=== PATIENT | male | born 1950 | race Caucasian/White ===

== ENCOUNTER 2019-07-20 15:19 | Observation (INO) | payer MEDICARE, OTHER, SELFPAY ==
[2019-07-20] VITALS (14 sets, daily range): BP systolic 111–187; BP diastolic 65–117; PULSE 66–155; RESP 15–20; TEMP 36.9–37.3; O2SAT 97–99; BMI 32.7
--- NOTE | ~2019-07-20 | XR_ITS ---
EXAMINATION: XR chest 1V portable DATE: 07/20/2019 15:45 INDICATION: Palpitations TECHNIQUE: frontal view of the chest was obtained. COMPARISON: None FINDINGS: The lungs are clear with no focal airspace opacities, pulmonary edema, pleural effusion or pneumothor ax. The cardiomediastinal silhouette is normal. Mild thoracic spondylosis. IMPRESSION: 1. No acute cardiopulmonary disease. Reviewed, dictated and finalized at location A. T CARE PROVIDER
--- NOTE | 2019-07-20 15:31 | ED.ARRPALP ---
HPI - Arrhythmia/Palpitations General Chief Complaint: Arrhythmia/Palpitations Stated Complaint: Irregular heartbeat Time Seen by Provider: 07/20/19 15:29 Source: patient and RN notes reviewed Mode of arrival: ambulatory Limitations: no limitations History of Present Illness HPI narrative: Pt is a 68 y/o male who presents to the ED with c/o heart palpitations which began 20 minutes prior to the arrival to the ED. Pt states he ate lunch and he began to experience heart palpitations shortly afterwards. He reports chest tightness, but denies SOB or chest pain. He denies having any major cardiac complications in the past. He does reports taking one baby ASA every day, but denies any other anticoagulants. Onset (ago): minute(s) (20 minutes prior to arrival) Duration: constant Associated symptoms: other (chest tightness) Related Data Allergies Allergy/AdvReac Type Severity Reaction Status Date / Time acetaminophen Allergy Mild NAUSEA Verified 07/20/19 17:52 clindamycin [From Cleocin] Allergy Mild Unknown Verified 07/20/19 16:38 Penicillins Allergy Mild Unknown Verified 07/20/19 16:38 Sulfa (Sulfonamide Allergy Mild Unknown Verified 07/20/19 16:38 Antibiotics) Review of Systems Review of Systems: All systems reviewed & are unremarkable except as noted in HPI and below Cardiovascular: Cardiovascular: Denies chest pain, Reports palpitations and Reports other (chest tightness) Respiratory: Respiratory: Denies dyspnea PMFSH Past Medical History Medical History (Updated 07/20/19 @ 17:32 by West Chambers DO) Hip fracture requiring operative repair (Acute) Hypertension (Acute) Comments PCP: Dr. Bishop Exam Narrative: Exam Narrative: APPEARANCE: No acute distress, nontoxic, resting in bed EYES: EOMI HEENT: Normocephalic, atraumatic, OMM RESPIRATORY: No respiratory distress Clear to auscultation bilaterally with no rhonchi wheezing or rales. CARDIOVASCULAR: Tachycardic and irregular without murmurs rubs or gallops. ABDOMINAL: Soft, nontender, nondistended, no rebound or guarding MUSCULOSKELETAl: Moves all extremities. No clubbing, cyanosis or edema. NEURO: Awake and alert. Following commands, speech normal, no focal deficits SKIN:: Warm, dry. No rashes lesions or abrasions PSYCHIATRIC: Normal affect/mood, Course Course Emergency Course: Discussed with MEGGAN Amin for Dr. Porras presentation work-up. Agrees with admission at this time Patient continues to have A. fib with rates of 130 to 150 with Cardizem drip increased to 50 mg an hour Called and updated Dr. Sung on continued tachycardia. At this time recommends patient given metoprolol 25 mg p.o. x1 and then continued on metoprolol 25 mg every 8 hours Discussed with patient and family results of workup and diagnosis. Discussed need for admission. Patient and family understand and agree to current treatment plan Consultations Consultation #1: Discussed case with apprentice lineman third step, Dr. Sung. Advised to start the pt on Lovenox medication. Date: 07/20/19 Time: 16:16 Vital Signs Vital signs: Vital Signs Temperature 99.0 F 07/20/19 15:50 Pulse Rate 155 H 07/20/19 15:50 Respiratory Rate 17 07/20/19 15:50 Blood Pressure 187/111 H 07/20/19 15:50 Pulse Oximetry 97 07/20/19 15:50 Temperature 99.1 F 07/20/19 17:02 Pulse Rate 126 H 07/20/19 17:32 Respiratory Rate 20 07/20/19 17:32 Blood Pressure 128/83 07/20/19 17:32 Pulse Oximetry 99 07/20/19 17:32 MDM - Arrhythmia/Palpitations Lab Data Result diagrams: 07/20/19 15:54 07/20/19 15:54 Labs: Lab Results 07/20/19 07/20/19 07/20/19 Range/Units 15:54 15:54 15:54 WBC 6.5 (4.5-10.0) K/mm3 RBC 5.55 (4.6-6.20) M/mm3 Hgb 15.8 (14.0-18.0) g/dL Hct 48.5 (42.0-52.0) % MCV 87.4 (80-100) fl MCH 28.5 (26-34) pg MCHC 32.6 (32-36) g/dl RDW 13.0 (11.5-14.5) % Plt Count 185 (150-375) k/mm3 MPV 8.9 (7.4-10.4) fl Imm
--- NOTE | 2019-07-20 15:32 | ECG_ITS ---
Measurements Intervals [place] Rate: 147 P: OR: 0 QRS: 63 QRSD: 100 T: 27 QT: 276 QTc: 432 Interpretive Statements ATRIAL FIBRILLATION WITH RAPID VENTRICULAR RESPONSE BORDERLINE ST-T WAVE ABNORMALITY- INFERIOR LEADS BASELINE ARTIFACT- I, II, AVR, AVL ABNORMAL ECG Electronically Signed On 07-21-2019 8:12:38 BASKET MACHINE OPERATOR by New Bautista D.O.
[2019-07-20 16:04] LABS: Basophils Absolute Auto 0.1 K/mm3 (0.0-0.1); Basophils Percent Auto 0.8 % (0.2-1.2); Eosinophils Absolute Auto 0.2 K/mm3 (0-0.3); Eosinophils Percent Auto 3.1 % (0-4.4); Hematocrit 48.5 % (42.0-52.0); Hemoglobin 15.8 g/dL (14.0-18.0); Immature Granulocyte Absolute 0.04 K/mm3 (0.00-0.031); Immature Granulocyte Percent A 0.6 % (0-0.5); Lymphocytes Absolute Auto 1.57 K/mm3 (0.9-3.2); Lymphocytes Percent Auto 24.2 % (18.3-44.2); Mean Corpuscular HGB Conc 32.6 g/dl (32-36); Mean Corpuscular Hemoglobin 28.5 pg (26-34); Mean Corpuscular Volume 87.4 fl (80-100); Mean Platelet Volume 8.9 fl (7.4-10.4); Monocytes Absolute Auto 0.4 K/mm3 (0.1-0.6); Monocytes Percent Auto 5.5 % (2.6-8.5); Neutrophils Absolute Auto 4.3 K/mm3 (1.3-6.7); Neutrophils Percent Auto 65.8 % (45.5-73.1); Platelet Count Result 185 k/mm3 (150-375); Red Blood Count 5.55 M/mm3 (4.6-6.20); White Blood Count 6.5 K/mm3 (4.5-10.0)
[2019-07-20 16:10] LABS: INR 0.9; Prothrombin Time 12.3 Seconds (11.1-14.7)
[2019-07-20 16:11] LABS: Partial Thromboplastin Time 26.6 SECONDS (22.3-36.8)
[2019-07-20 16:13] LABS: Alanine Aminotransferase 19 U/L (4-50); Albumin Level 4.5 g/dL (3.5-5.1); Alkaline Phosphatase 49 U/L (38-126); Aspartate Amino Transferase 26 U/L (17-59); Bilirubin,Total 0.4 mg/dL (0.2-1.3); Blood Urea Nitrogen 23 mg/dL (9-20); Calcium 9.3 mg/dL (8.4-10.2); Carbon Dioxide 28 mmol/L (22-30); Chloride 99 mmol/L (98-107); Estimated CRCL calculation 67 ml/min; Estimated Glomerular Filt Rate 60; Glucose 177 mg/dL (75-110); Potassium 4.3 mmol/L (3.4-5.0); Sodium 136 mmol/L (137-145)
[2019-07-20 16:24] LABS: Troponin I 0.014 ng/mL (0.000-0.034)
[2019-07-20] MEDS: SODIUM CHLORIDE 0.9% IV 1,000 ML 999 ML IV CONT (16:33)
[2019-07-20] MEDS: ENOXAPARIN 120 MG/0.8 ML SYRINGE 105 MG SUB-Q (17:40)
[2019-07-20] MEDS: METOPROLOL TARTRATE 25 MG TABLET PO (18:32)
--- NOTE | 2019-07-20 19:01 | ADMGEN ---
This patient, Colten Amaya, was admitted to IMU Room 207-01. Patient/family oriented to hospital policies and general routines including ID bracelet, bed and alarms, visiting hours, pain management, procedures, bathroom and other care routines, personal items, smoking policy, room service/diet, and visiting hours. Valuables list has been completed. Information on how to activate the Rapid Response Team has been discussed. Patient/Family are encouraged to report perceived risks to care and to ask questions if they do not understand what they are told or what they should do.
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
[2019-07-20 22:30] LABS: Troponin I 0.142 ng/mL (0.000-0.034)
[2019-07-21] VITALS (10 sets, daily range): BP systolic 138–155; BP diastolic 64–70; PULSE 57–75; RESP 18–20; TEMP 36.6; O2SAT 98–99
--- NOTE | 2019-07-21 02:37 | ECG_ITS ---
Measurements Intervals [place] Rate: 64 P: 40 HI: 197 QRS: 49 QRSD: 114 T: 63 QT: 417 QTc: 431 Interpretive Statements SINUS RHYTHM ATRIAL PREMATURE COMPLEX INTRAVENTRICULAR CONDUCTION DELAY BASELINE ARTIFACT- II, III BORDERLINE ECG Electronically Signed On 07-21-2019 14:51:51 MANAGER STATISTICS by New Bautista D.O.
[2019-07-21 04:51] LABS: Basophils Absolute Auto 0.1 K/mm3 (0.0-0.1); Basophils Percent Auto 0.8 % (0.2-1.2); Eosinophils Absolute Auto 0.1 K/mm3 (0-0.3); Hematocrit 45.7 % (42.0-52.0); Hemoglobin 14.9 g/dL (14.0-18.0); Immature Granulocyte Absolute 0.02 K/mm3 (0.00-0.031); Immature Granulocyte Percent A 0.3 % (0-0.5); Lymphocytes Absolute Auto 1.92 K/mm3 (0.9-3.2); Lymphocytes Percent Auto 27.2 % (18.3-44.2); Mean Corpuscular HGB Conc 32.6 g/dl (32-36); Mean Corpuscular Hemoglobin 28.4 pg (26-34); Mean Corpuscular Volume 87.2 fl (80-100); Mean Platelet Volume 8.7 fl (7.4-10.4); Monocytes Absolute Auto 0.5 K/mm3 (0.1-0.6); Monocytes Percent Auto 7.1 % (2.6-8.5); Neutrophils Absolute Auto 4.4 K/mm3 (1.3-6.7); Neutrophils Percent Auto 62.6 % (45.5-73.1); Platelet Count Result 196 k/mm3 (150-375); Red Blood Count 5.24 M/mm3 (4.6-6.20); White Blood Count 7.1 K/mm3 (4.5-10.0)
[2019-07-21 05:02] LABS: Cholesterol 210 mg/dL (0-200); HDL Direct 45 mg/dL; Triglycerides 169 mg/dL (<150)
[2019-07-21 05:03] LABS: Blood Urea Nitrogen 20 mg/dL (9-20); Calcium 8.8 mg/dL (8.4-10.2); Carbon Dioxide 30 mmol/L (22-30); Chloride 99 mmol/L (98-107); Estimated CRCL calculation 74 ml/min; Estimated Glomerular Filt Rate > 60; Glucose 115 mg/dL (75-110); Potassium 4.2 mmol/L (3.4-5.0); Sodium 134 mmol/L (137-145)
[2019-07-21 05:08] LABS: Magnesium 2.3 mg/dL (1.6-2.3); Phosphorus 3.8 mg/dL (2.5-4.5)
[2019-07-21 05:14] LABS: LDL Cholesterol Direct 134 mg/dL
[2019-07-21] MEDS: ENOXAPARIN 120 MG/0.8 ML SYRINGE 105 MG SUB-Q (05:42)
[2019-07-21] MEDS: METOPROLOL TARTRATE 25 MG TABLET PO (05:43)
[2019-07-21 06:26] LABS: Hemoglobin A1C 5.9 % (<5.7)
--- NOTE | 2019-07-21 08:32 | ECG_ITS ---
Measurements Intervals [place] Rate: 60 P: 85 NH: 212 QRS: 54 QRSD: 109 T: 67 QT: 418 QTc: 418 Interpretive Statements SINUS RHYTHM WITH FIRST DEGREE AV BLOCK ABNORMAL ECG Electronically Signed On 07-21-2019 10:25:02 COMMISSIONING MANAGER by New Bautista D.O.
[2019-07-21] MEDS: ENALAPRIL MALEATE 10 MG TABLET PO (09:04)
[2019-07-21] MEDS: LOPERAMIDE HCL 2 MG CAPSULE PO (10:10)
[2019-07-21 10:45] LABS: Troponin I 0.094 ng/mL (0.000-0.034)
--- NOTE | 2019-07-21 11:39 | PM.CNCAR ---
Assessment and Plan Assessment and plan (1) Atrial fibrillation with rapid ventricular response: Code(s): I48.91 - Unspecified atrial fibrillation Status: Acute Assessment and Plan: New diagnosis, symptomatic at presentation with rapid ventricular response 170 beats per minute. diltiazem did not control heart rate effectively until metoprolol was added. Patient converted to sinus rhythm overnight and is asymptomatic with a heart rate in the 60s to 70s. He feels well on current regimen. 2D echocardiogram personally reviewed normal LV function although difficult study, no significant valve pathology. (2) Hypertension: Code(s): I10 - Essential (primary) hypertension Status: Chronic Assessment and Plan: Blood pressure variable, not ideal but fair control overall. Continue home antihypertensive regimen. (3) Elevated troponin: Code(s): R79.89 - Other specified abnormal findings of blood chemistry Status: Acute Assessment and Plan: Type 2 infarct not secondary to acute coronary syndrome and/or plaque rupture. Troponin elevation in setting of atrial fibrillation with rapid ventricular response resulting in demand ischemia. Patient has no symptoms suggestive myocardial ischemia. However, given his risk factors cannot exclude underlying CAD. Troponin trend is not consistent with primary plaque rupture and as such outpatient ischemic evaluation was discussed and will be pursued. All questions answered to the patient and his 's satisfaction. Explained the pathophysiology, treatment options, embolic stroke risk associated with atrial fibrillation and the goal for rhythm control and oral rate control. CHADS2 Vasc score 3. Systemic anticoagulation advised. Will initiate Xarelto 20 mg at bedtime. We discussed increased bleeding risk with concomitant aspirin and anticoagulation and for stroke risk reduction. We also discussed continuation of ASA given elevated Trop I but pt denies CP at any time. IF any concern may continue ASA until ischemic evaluation complete. We will set outpatient follow-up and plans for treadmill nuclear stress test. Continue metoprolol 25 mg p.o. twice daily. Continue home cardiovascular medical therapy with the exception of aspirin as above. Diltiazem will be discontinued. counseled on monitoring for recurrence of atrial fibrillation and went to notify the office. He will monitor for bleeding with black tarry stools, bright red blood and/or other bleeding concerns. Caution with ambulation to avoid falls and injuries. Embolic stroke risk statistically appears to outweigh risk for bleeding and as such systemic anticoagulation advised. Patient is in agreement with this plan of care. Patient stable for discharge home from cardiac perspective follow up as an outpatient. Will defer to hospitalist service in this regard. (4) Diet-controlled diabetes mellitus: Code(s): E11.9 - Type 2 diabetes mellitus without complications Status: Acute Assessment and Plan: Per primary service. Continue lifestyle modification. History of Present Illness History of Present Illness Consult date/time: DATE OF SERVICE: 07/21/19 11:15 This is a cardiology consultation at the request of Dr. Porras of the [facility] Hospitalist service for my opinion regarding management of atrial fibrillation with rapid ventricular response. Requesting physician: Anahi Porras MD Consult reason: atrial fibrillation Reason For Visit: Palpitations. Narrative: Patient is a very pleasant 68-year-old gentleman with a history of diet-controlled diabetes mellitus, hypertension, obesity, history of tobacco abuse, and dyslipidemia who presents to the emergency department with complaints of rapid palpitations in general not feeling well. His symptoms became 0 severe approximately 20 minutes prior to arrival, however, he notes that he had been having intermittent symptoms off and on fo
[2019-07-21 12:04] LABS: Glucose Point of Care 110 (65-105)
--- NOTE | 2019-07-21 13:54 | PM.DS ---
DS: Diagnosis Admitting Diagnosis Admitting Diagnosis: Unspecified atrial fibrillation Discharge Diagnosis (1) Atrial fibrillation with rapid ventricular response: Code(s): I48.91 - Unspecified atrial fibrillation Status: Acute Assessment and Plan: Patient with AFib/RVR on admission to the ER with palpitations starting 20 minutes prior to presentation. TSH 2.8. Started on a Cardizem drip and converted to normal sinus rhythm. Echo showing EF 55% with grade II DD. Limited Echo images. Patient was converted to p.o. metoprolol. He was started on therapeutic dose of Lovenox and changed to Xarelto at discharge. Cardiology was involved his care. Cardiology felt patient could be discharged today. Patient will need to follow up with Cardiology to schedule an outpatient stress test. Patient is eager for discharge. (2) Elevated troponin: Code(s): R79.89 - Other specified abnormal findings of blood chemistry Status: Acute Assessment and Plan: Troponin to 0.14. Likely related to rapid ventricular response but cannot exclude underlying ischemic disease. Plan for outpatient stress test per Cardiology recommendation. Continue aspirin and metoprolol. (3) Hypertension: Code(s): I10 - Essential (primary) hypertension Status: Chronic Assessment and Plan: Blood pressure was as high as 187/111 in the emergency department but has improved with the addition of Cardizem and metoprolol. Blood pressure improved throughout the day today and currently is 140/69. (4) Diet-controlled diabetes mellitus: Code(s): E11.9 - Type 2 diabetes mellitus without complications Status: Acute Assessment and Plan: Diet controlled DM. A1c 5.9. Glucose remained well controlled. DS: Summary Hospital Course Reason for hospitalization: 68yo male here for AFib/RVR. Please see H&P for details. Hospital Course: See above Status at Discharge Functional status at discharge: independent ambulation Overall status at discharge: patient is back to baseline Time Spent with Patient Time attestation: Total time spent providing and/or coordinating discharge services: Specific discharge activities: 32 minutes spent on discharge. Exam Narrative: Exam Narrative: Gen - NARD Chest - CTA bilaterally, nml RR CV - RRR S1/S2; telemetry showing normal sinus rhythm now Abd - Soft, NT/ND, Positive BS Ext - No pedal edema Psych - Nml mood and affect Skin - Warm and dry DS: Data Data Completed and Pending Labs on day of discharge: Labs from last 24 hours 07/21/19 07/21/19 07/21/19 11:39 10:03 04:21 WBC RBC Hgb Hct MCV MCH MCHC RDW Plt Count MPV Immature Gran % (Auto) Neut % (Auto) Lymph % (Auto) Gila % (Auto) Eos % (Auto) Baso % (Auto) Lymph # (Auto) Gila # (Auto) Eos # (Auto) Baso # (Auto) Abs Immat Gran (auto) Absolute Neuts (auto) Absolute Nucleated RBC Nucleated RBC % PT INR APTT Sodium Potassium Chloride Carbon Dioxide BUN Creatinine Estim Creat Clear Calc Estimated GFR Glucose POC Capillary Glucose 110 Hemoglobin A1c 5.9 H Calcium Phosphorus Magnesium Total Bilirubin AST ALT Alkaline Phosphatase Troponin I 0.094 H* Total Protein Albumin Triglycerides Cholesterol LDL Cholesterol Direct HDL Direct TSH (Reflex) 07/21/19 07/21/19 07/21/19 04:21 04:21 04:21 WBC RBC Hgb Hct MCV MCH MCHC RDW Plt Count MPV Immature Gran % (Auto) Neut % (Auto) Lymph % (Auto) Gila % (Auto) Eos % (Auto) Baso % (Auto) Lymph # (Auto) Gila # (Auto) Eos # (Auto) Baso # (Auto) Abs Immat Gran (auto) Absolute Neuts (auto) Absolute Nucleated RBC Nucleated RBC % PT INR APTT Sodium Potassium Chloride Carbo
--- NOTE | 2019-07-21 23:51 | ECHO_ITS ---
Patient Info Name: Colten Amaya Age: 68 years : 1950 Gender: Male Ht: 72 in Wt: 241 lbs BSA: 2.39 m2 HR: 60 bpm BP: 138 / 64 mmHg Heart Rhythm: Sinus Rhythm Technical Quality: Good Exam Date: 07/21/2019 9:48 AM Exam Location: [facility] Pulmonary Patient Status: Inpatient Staff Ordering Physician: Eloisa Yanes PA-C Measurement Department Chief Clerk: Heriberto Edwards RDCS Attending Provider: Anahi Porras MD Referring Physician: Joaquín CORNEJO; Exam Type: CA echo doppler color flow Study Info Indications I48.0 - Paroxysmal atrial fibrillation Complete two-dimensional, color flow and Doppler transthoracic echocardiogram is performed. History/Risk Factors Atrial fibrillation; HTN, DM2, trop leak 2/2 afib. Summary 1. Technically difficult study with limited views. Left ventricular systolic function is normal, estimated at 55%. Regional wall motion assessment limited due to poor endomyocardial border definition in several views. 2. There is mildly increased left ventricular wall thickness. 3. The left ventricular diastolic function is grade II diastolic dysfunction. 4. Right atrial chamber dimension is mildly enlarged. 5. There is trace tricuspid valve regurgitation. 6. Unable to estimate PA systolic pressure due to poor spectral resolution of tricuspid regurgitant jet velocity. 7. There is mild mitral valve regurgitation. 8. Mild calcification of the aortic root. Left Ventricle Left ventricular chamber dimension is normal. Technically difficult study with limited views. Left ventricular systolic function is normal, estimated at 55%. Regional wall motion assessment limited due to poor endomyocardial border definition in several views. There is mildly increased left ventricular wall thickness. The left ventricular diastolic function is grade II diastolic dysfunction. E/e' 12.0 is elevated. Global longitudinal strain is mildly elevated at -13 %. Right Ventricle Right ventricular chamber dimension is normal. Right ventricular systolic function is normal. Left Atria Left atrial chamber dimension is normal. Right Atria Right atrial chamber dimension is mildly enlarged. Aortic Valve The aortic valve is not well visualized. There is no aortic valve stenosis. There is mild aortic valve regurgitation. Pulmonic Valve The pulmonic valve is not well visualized. Mitral Valve The mitral valve has normal leaflets and calcified annulus. There is mild mitral valve regurgitation. Tricuspid Valve The tricuspid valve leaflets are normal. There is trace tricuspid valve regurgitation. Unable to estimate PA systolic pressure due to poor spectral resolution of tricuspid regurgitant jet velocity. Pericardium/Pleural The pericardium appears not well visualized. Aorta The aortic root size at the sinus of Valsalva is normal. Mild calcification of the aortic root. Left Ventricular Outflow Tract Name Value Normal LVOT 2D LVOT Diameter 2.2 cm LVOT Doppler LVOT Peak Gradient 4 mmHg LVOT Mean Gradient 2 mmHg LVOT VTI 21
== END 2019-07-21 14:30 | disposition home or self-care (01) ==
LOC: ANHED 17:32 → ANHIMU 23:51
PROVIDERS: Internal Medicine Cardiovascular Disease; Physician Assistant; Admitting Provider Family Medicine; Emergency Provider Emergency Medicine; PCP Internal Medicine; Visit Provider Internal Medicine
DX: I48.20 Chronic atrial fibrillation, unspecified (principal); R79.89 Other specified abnormal findings of blood chemistry; I10 Essential (primary) hypertension; E78.5 Hyperlipidemia, unspecified; E11.9 Type 2 diabetes mellitus without complications; Z79.82 Long term (current) use of aspirin
CPT/HCPCS: 36415; 71045; 80048; 80053; 80061; 83036; 83735; 84100; 84443; 84484; 85025; 85610; 85730; 93005; 93306; 96361; 96365; 96366; 96372; 96376; 99285; A9270; G0378; J1650; J7030

== ENCOUNTER 2025-02-15 07:00 | Emergency (ER) | payer MEDICARE, SELFPAY ==
[2025-02-15] VITALS (9 sets, daily range): BP systolic 146–172; BP diastolic 73–98; PULSE 81–103; RESP 12–20; TEMP 36.6; O2SAT 98–100
--- NOTE | ~2025-02-15 | XR_ITS ---
Clinical Indication: Palpitations PA and lateral views of the chest: Comparison: 07/20/2019 Findings: The lungs are clear, without evidence of focal consolidation or pleural effusion. Cardiome diastinal silhouette is within normal limits. Bones and soft tissues are unremarkable. Impression: Normal chest. Reviewed, dictated and finalized at location . Impression: Normal chest.
--- NOTE | 2025-02-15 07:12 | ECG_ITS ---
Test Date: 2025-02-15 07:15:03 Measurements Intervals [place] Rate: 101 P: 0 TN: 0 QRS: 51 QRSD: 110 T: 32 QT: 327 QTc: 424 Interpretive Statements ATRIAL FIBRILLATION WITH RAPID VENTRICULAR RESPONSE BASELINE ARTIFACT- I, II, III ,AVR, AVL, AVF ABNORMAL ECG No previous ECG available for comparison Electronically Signed On 02-15-2025 07:47:38 CDT by New Bautista D.O.
[2025-02-15 07:39] LABS: Basophils Percent Auto 0.4 % (0.2-1.2); Eosinophils Absolute Auto 0.1 K/mm3 (0-0.3); Eosinophils Percent Auto 1.3 % (0-4.4); Hematocrit 48.7 % (42.0-52.0); Hemoglobin 15.6 g/dL (14.0-18.0); Immature Granulocyte Absolute 0.04 K/mm3 (0.00-0.031); Immature Granulocyte Percent A 0.4 % (0-0.5); Lymphocytes Absolute Auto 1.48 K/mm3 (0.9-3.2); Lymphocytes Percent Auto 14.7 % (18.3-44.2); Mean Corpuscular Hemoglobin 29.3 pg (26-34); Mean Corpuscular Volume 91.4 fl (80-100); Mean Platelet Volume 9.6 fl (7.4-10.4); Monocytes Absolute Auto 0.7 K/mm3 (0.1-0.6); Monocytes Percent Auto 7.3 % (2.6-8.5); Neutrophils Absolute Auto 7.7 K/mm3 (1.3-6.7); Neutrophils Percent Auto 75.9 % (45.5-73.1); Platelet Count Result 187 k/mm3 (150-375); Red Blood Count 5.33 M/mm3 (4.6-6.20); Red Cell Distribution Width 13.9 % (11.5-14.5); White Blood Count 10.1 K/mm3 (4.5-10.0)
[2025-02-15] MEDS: SODIUM CHLORIDE 0.9% IV 1,000 ML 999 ML (07:45)
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
[2025-02-15 07:51] LABS: Alanine Aminotransferase 27 U/L (6-50); Alkaline Phosphatase 55 U/L (38-126); Anion Gap 10 mmol/L (4-12); Aspartate Amino Transferase 23 U/L (17-59); Bilirubin,Total 0.7 mg/dL (0.2-1.3); Blood Urea Nitrogen 26 mg/dL (9-20); Calcium 8.8 mg/dL (8.4-10.2); Carbon Dioxide 21 mmol/L (22-30); Chloride 107 mmol/L (98-107); Estimated CRCL calculation 75 ml/min; Estimated Glomerular Filt Rate > 60; Glucose 202 mg/dL (65-110); Lipase 125 U/L (23-300); Potassium 4.1 mmol/L (3.4-5.0); Sodium 138 mmol/L (137-145); Total Protein 7.1 g/dL (6.3-8.2)
[2025-02-15 07:54] LABS: INR 1.6; Prothrombin Time 18.4 Seconds (11.1-14.7)
--- NOTE | 2025-02-15 07:55 | PC.NURSE ---
lab called to add on TSH
[2025-02-15 08:03] LABS: Troponin I 0.021 ng/mL (0.000-0.034)
[2025-02-15 08:39] LABS: Partial Thromboplastin Time 29.4 Seconds (22.3-36.8)
--- NOTE | 2025-02-15 10:07 | ECG_ITS ---
Test Date: 2025-02-15 10:12:07 Measurements Intervals [place] Rate: 94 P: 0 [place]: 0 QRS: 42 QRSD: 99 T: 33 QT: 339 QTc: 425 Interpretive Statements ATRIAL FIBRILLATION WITH ABERRANT CONDUCTION OR VENTRICULAR PREMATURE COMPLEXES BASELINE ARTIFACT- I, III, AVR, AVL, AVF, V4-V6 ABNORMAL ECG Compared to ECG 02/15/2025 07:15:03 Ventricular premature complex(es) now present Electronically Signed On 02-15-2025 10:46:44 CDT by [place] B[place]ista D.O.
[2025-02-15 10:54] LABS: Troponin I 0.019 ng/mL (0.000-0.034)
== END 2025-02-15 12:06 | disposition home or self-care (01) ==
PROVIDERS: Emergency Medicine; Emergency Provider Emergency Medicine; PCP Internal Medicine
DX: R00.2 Palpitations (principal); I48.20 Chronic atrial fibrillation, unspecified; I10 Essential (primary) hypertension; E11.9 Type 2 diabetes mellitus without complications; Z79.01 Long term (current) use of anticoagulants; Z79.899 Other long term (current) drug therapy; R94.31 Abnormal electrocardiogram [ECG] [EKG]
CPT/HCPCS: 36415; 71046; 80053; 83690; 84443; 84484; 85025; 85610; 85730; 93005; 99284; J7030